=== PATIENT | male | born 1940 | race Caucasian/White ===

== ENCOUNTER 2017-12-20 10:18 | Emergency (ER) ==
[2017-12-20] MEDS: EPINEPHRINE 1:10,000 SYRINGE IV PRN ×7 (10:20→11:42)
[2017-12-20] MEDS: SODIUM BICARBONATE 7.5% IVP PRN ×2 (10:24→10:40)
[2017-12-20 10:49] VITALS: TEMP 98.4; BMI 28.8
[2017-12-20] MEDS: ATROPINE SULFATE PFS IVP PRN ×2 (10:57→11:20)
--- NOTE | 2017-12-20 11:06 | ED.PDOC ---
General ED Provider: Dr. RON CUBA Chief Complaint: Cardiac Arrest Stated Complaint: Patient was a guest at the [employer] [facility] and was apparently departing this AM and witnessed collapsing on the lawn outside the motel. Bystander CPR intiated as 911 activated. Upon arrival here by EMS patient coding and CPR had been in progress. Patient was not intubated. Oral airway in place. CPR was continued. Time Seen by Physician: 10:20 Mode of Arrival: Ambulance Information Source: Patient, EMT Exam Limitations: No limitations Nursing and Triage Documentation Reviewed and Agree: Yes Does patient meet sepsis criteria?: No System Inflammatory Response Syndrome: Not Applicable Sepsis Protocol: For patient's 13 years and over: Temp is 96.8 and below OR 101 and greater Pulse >90 BPM Resp >20/minute Acutely Altered Mental Status Are patient's symptoms suggestive of a new infection, such as: -Pneumonia -Skin, Soft Tissue -Endocarditis -UTI -Bone, Joint Infection -Implantable Device -Acute Abdominal Infection -Wound Infection -Meningitis -Blood Stream Catheter Infection -Unknown Cardiac Resuscitation - Cardiac Resuscitation/Physical Exam Onset/Duration: Minutes (20) Witnessed Arrest: Yes Down-time Before BLS Initiated: 5 minutes Down-time Before ALS Initiated: 15 min Airway Prehospital Findings: Reports: Patent Breathing Prehospital Findings: Reports: Apnea Circulation/Rhythm Prehospital Findings: Reports: Pulses absent Disability/Neurological Prehospital Findings: Reports: Unresponsive Airway Prehospital Intervention: Reports: Chin lift, Jaw thrust, Oral airway Breathing Prehospital Intervention: Reports: Oxygen Circulation/Rhythm Prehospital Intervention: Reports: Chest compressions, Epinephrine Breathing Prehospital Response: Present: Equal breath sounds Circulation/Rhythm Prehospital Response: Present: Pulses absent, Asystole, PEA Breathing ED Findings: Present: Apnea Circulation/Rhythm ED Findings: Present: Pulses absent Disability/Neurological ED Findings: Present: Unresponsive Airway ED Intervention: Chin lift, Jaw thrust (Intubated) Breathing ED Intervention: Oxygen, Bag-valve mask, Intubated by ED physician ( 1020 hs Patient intubated with 7.5 tube straight blade) Circulation/Rhythm ED Intervention: Chest compressions Breathing ED Response: ETT in airway, Equal breath sounds, Confirmed by auscultation, Confirmed by CO2 detector Circulation/Rhythm ED Response: Present: Pulses present (PEA to NSR; ), Pulses absent (ROSC lost and recoded at 10:49; ACLS Protocol; Regained HR with ROSC) Right Pupil: Fixed, Dilated Left Pupil: Fixed, Dilated Review Of Systems: Unable due to extremis EMS/Code Sheet Reviewed: Yes Patient is a DNR: No (Unknown) Patient Has a Living Will: No Resuscitation Successful: No Preliminary Cause of : Fatal arrhythmia. Coronary ishemia Differential Diagnoses: Acute SC, Card. Rhythm Disturbance Quality Indicator For Non-Traumatic Chest Pain/Syncope: EKG Performed Additional Information: After coding patient, regained electrical activity for short period then returned to asystole. NO VS. Coded again after using ACLS protocol. Had ROSC at approx 1949 hrs, Continued to require continous ALS with mechanical ventilation. Pupils remained fixed and dilated and demonstrated no reponsed to tactile or noxious stimuli. Despite use of ACLS meds, pts cardicac rhythm and deterioated despite therapy and had cardiac arrest. Patient pronounced at 1227 hrs Past Medical History - Past Medical History Endocrine: Reports: Unknown Cardiovascular: Reports: CAD, Hypertension, A-Fib Respiratory: Reports: Unknown Hematological: Reports: Unknown Gastrointestinal: Reports: Unknown Genitourinary: Reports: Unknown Neuro/Psych: Reports: Unknown Musculoskeletal: Reports: Unknown Cancer: Reports: Unknown - Surgical History General Surgical History: Reports: Unknown - Family History Family History: Reports: Unknown - Social History Smoking Status: Unknown if ever smoked Hx Substance Use: (unknown) Interpretation - Radiology Interpretation Radiology Results: Positive (cardiomegaly, pulmonary vascular congestion, ? basilar infiltrate) Exam Interpreted: Portable CXR Xray Comments: cardiomegaly - EKG Interpretation Time of EKG #1: 10:48 Rhythm: Sinus Ectopy: PVCs ST Segment: Other (Depressed) Interpretation: Global Ishemia. RBBB, Possible SC Physician Notification - Case Discussed Physician Notified: Supervisor [employer] At [facility], [place], [facility] Time of Notification: 11:15 (Discussed case.Post Code EKG- STEMI not obvious; Not candidate for Emergent Cath. ) Critical Care Note - Critical Care Note Total Time (mins): 120 Course - Course Hematology/Chemistry: 12/20/17 10:35 12/20/17 10:35 Orders, Labs, Meds: Lab Review 12/20/17 12/20/17 12/20/17 10:35 10:35 10:35 WBC 16.31 H RBC 3.77 L Hgb 11.1 L Hct 37.4 L MCV 99.2 H MCH 29.4 MCHC 29.7 L RDW Coeff of Mahendra 13.3 Plt Count 168 Immature Gran % (Auto) 5.3 H Neut % (Auto) 74.2 Lymph % (Auto) 10.9 [place] % (Auto) 9.2 Eos % (Auto) 0.1 Baso % (Auto) 0.3 Immature Gran # (Auto) 0.9 Neut # (Auto) 12.1 H Lymph # (Auto) 1.8 [place] # (Auto) 1.5 Eos # (Auto) 0.0 Baso # (Auto) 0.1 Puncture Site O2 Saturation ABG pH ABG pCO2 ABG pO2 ABG HCO3 ABG Total CO2 ABG Base Excess Jeancarlos Test O2 Delivery Device Oxygen Liter Flow FiO2 % Sodium 140.0 Potassium 4.07 Chloride 99.9 Carbon Dioxide 17.6 L Anion Gap 26.57 BUN 23.7 H Creatinine 1.39 H Estimated GFR (MDRD) 49.00 BUN/Creatinine Ratio 17.05 Glucose 300.9 H Calcium 8.40 Total Bilirubin 3.39 H AST 221.9 H ALT 162.7 H Alkaline Phosphatase 58.9 Total Creatine Kinase 356.8 H CK-MB (CK-2) 20.100 H* CK-MB (CK-2) % 5.6300 Troponin I 1.990 H* Total Protein 6.06 L Albumin 3.47 L Globulin 2.59 Albumin/Globulin Ratio 1.33 Plasma/Serum Alcohol 12/20/17 12/20/17 12/20/17 10:35 12:31 12:32 WBC RBC Hgb Hct MCV MCH MCHC RDW Coeff of Mahendra Plt Count Immature Gran % (Auto) Neut % (Auto) Lymph % (Auto) [place] % (Auto) Eos % (Auto) Baso % (Auto) Immature Gran # (Auto) Neut # (Auto) Lymph # (Auto) [place] # (Auto) Eos # (Auto) Baso # (Auto) Puncture Site Rrad Rrad O2 Saturation 30.0 L 96.0 ABG pH 6.793 L* 7.044 L* ABG pCO2 119.3 H 54.6 H ABG pO2 37.0 L* 117.0 H ABG HCO3 18.3 L 14.9 L ABG Total CO2 22 17 L ABG Base Excess -16 L -16 L Jeancarlos Test + O2 Delivery Device Ambu Vent Oxygen Liter Flow 15.00 FiO2 % 100.0 60.0 Sodium Potassium Chloride Carbon Dioxide Anion Gap BUN Creatinine Estimated GFR (MDRD) BUN/Creatinine Ratio Glucose Calcium Total Bilirubin AST ALT Alkaline Phosphatase Total Creatine Kinase CK-MB (CK-2) CK-MB (CK-2) % Troponin I Total Protein Albumin Globulin Albumin/Globulin Ratio Plasma/Serum Alcohol < 10.0 Orders Category Date Time Status ABG DRAW REQUEST Stat CARDIO 12/20/17 10:45 Completed ABG DRAW REQUEST Stat CARDIO 12/20/17 11:15 Completed CPR - ED ONLY Stat CARDIO 12/20/17 11:10 Completed EKG-(ED ONLY) Stat CARDIO 12/20/17 10:45 Completed EKG-(ED ONLY) Stat CARDIO 12/20/17 10:45 Completed VENTILATOR Routine CARDIO 12/20/17 11:30 Completed ED PAROLE HEARING OFFICER APPLIED .ONCE EMERGENCY 12/20/17 11:10 Active ED IV/MEDIPORT/POWERPORT .ONCE EMERGENCY 12/20/17 11:10 Active ABG Stat LAB 12/20/17 12:31 Completed ABG Stat LAB 12/20/17 12:32 Completed BLOOD ALCOHOL Stat LAB 12/20/17 10:35 Completed CBC W/ AUTO DIFF Stat LAB 12/20/17 10:35 Completed COMPREHENSIVE METABOLIC PANEL Stat LAB 12/20/17 10:35 Completed CREATINE KINASE Stat LAB 12/20/17 10:35 Completed TROPONIN I Stat LAB 12/20/17 10:35 Completed 0.9 % Sodium Chloride [Saline Flush] MEDS 12/20/17 11:10 Discontinued 1 syr IVF PRN PRN 0.9 % Sodium Chloride [Sodium Chloride] 246 ml MEDS 12/20/17 12:00 Discontinued Norepinephrine Bitartrate Inj [Levophed] 4 mg IV 8 mcg/min Atropine Sulfate Inj [Atropine Sulfate Pfs] MEDS 12/20/17 11:10 Discontinued 1 mg IVP PRN PRN Dextrose 5 %-Water [Dextrose 5%-Water IV Soln] 246 ml MEDS 12/20/17 12:00 Discontinued Norepinephrine Bitartrate Inj [Levophed] 4 mg IV 8 mcg/min Epinephrine [Epinephrine 1:10,000 Syringe] MEDS 12/20/17 11:10 Discontinued 1 mg IV PRN PRN Sodium Bicarb 7.5% [Sodium Bicarbonate 7.5%] MEDS 12/20/17 11:10 Discontinued 44.6 meq IVP PRN PRN CHEST, 1V AP ONLY Stat RADS 12/20/17 10:31 Completed Medications Discontinued Medications Generic Name Dose Route Start Last Admin Trade Name Freq PRN Reason Stop Dose Admin Atropine Sulfate 1 mg 12/20/17 11:10 12/20/17 11:20 Atropine Sulfate Pfs IVP 1 mg PRN PRN Administration DIRECTED BY PHYSICIAN-CODE Epinephrine HCl 1 mg 12/20/17 11:10 12/20/17 11:42 Epinephrine 1:10,000 Syringe IV 1 mg PRN PRN Administration DIRECTED BY PHYSICIAN-CODE Norepinephrine Bitartrate 4 mg 250 mls @ 30 mls/hr 12/20/17 12:00 / Sodium Chloride IV .Q8H20M DAVID Protocol 8 MCG/MIN Norepinephrine Bitartrate 4 mg 250 mls @ 30 mls/hr 12/20/17 12:00 12/20/17 11 :38 / Dextrose IV 8 mcg/min .Q8H20M DAVID 30 mls/hr Administration Protocol 8 MCG/MIN Sodium Bicarbonate 44.6 meq 12/20/17 11:10 12/20/17 10:40 Sodium Bicarbonate 7.5% IVP 44.6 meq PRN PRN Administration DIRECTED BY PHYSICIAN-CODE Sodium Chloride 1 syr 12/20/17 11:10 Saline Flush IVF PRN PRN To flush IV Vital Signs: Temp Pulse Resp BP Pulse Ox 12/20/17 12:00 16 12/20/17 11:38 80 20 65/44 L 12/20/17 11:00 16 12/20/17 10:56 80 20 110/57 L 12/20/17 10:20 98.4 F 0 L 0 L 0/0 L 49 L Departure - Departure Time of Disposition: 12:37 Disposition: Discharge Problem: Cardiac arrhythmia, Cardiac arrest Condition: Pt referred to PMD for follow-up: No IPMP verified?: No ED Physician Progress Note ED Physician Progress Note: [] Additional Comments Additional Comments: After coding patient, he regained electrical activity for short period. All definitive meds used. Regained spontaneous heart rhythm. EKG obtained. Contacted Cardiology at [facility] regading Cardicac evaluation and possible heart cath. Discussed case.Post Code EKG- revealed no findings suggestive of a STEMI; Advised Not candidate for Emergent Cath. The patient shortly deterioated becoming progressively hypotensive and then cardiac arrest - returned to asystole. NO VS. Coded again after using ACLS protocol .Had ROSC at approx 1949 hrs, Initiatedf NE drip. Continued to require continous ALS with mechanical ventilation. Pupils remained fixed and dilated and demonstrated no reponsed to tactile or noxious stimuli. Discussed with hospitalist at [facility] regarding possible transfer. Experssed need for patient to have Central line. Patient had peripheral access. Determined not stable for transfer or placement of Central Line due to his status and potential risk involved in light of having acceptable peripheral IV access. Considered admission here for continued stabilization . Opted to keep patient in ER for close monitoring. Despite use of ACLS meds, pts VS and cardicac rhythm deterioated and went into cardiac arrest. Determined additional treatment not warranted due to current conditon and Patient pronounced at 1227 hrs. Next of KIN in [place] contacted with assistance of [facility] . Licensed Journeyman Electrician contacted by Staff. Additional Information: Contacted PD in [facility] for assistance with notification of next of kin. Return call from the carpenter inspector revealed notification made to a Henry Heisinger, nephew. Spoke with him and discussed circumstances surrounging the . Advised patient with known history of medical problems including heart disease, meds listed noted and confirmed. Provided information to the [facility]
[2017-12-20] MEDS ORDERED: LEVOPHED 4 MG in DEXTROSE 5%-WATER IV SOLN 246 ML IV SCH (12:00)
[2017-12-20] MEDS ORDERED: LEVOPHED 4 MG in SODIUM CHLORIDE 246 ML IV SCH (12:00)
[2017-12-20 14:40] VITALS: BP 65/44
--- NOTE | 2017-12-21 08:15 | DI ---
EXAM: Chest one view, frontal view only. HISTORY: Cardiac arrest. COMPARISON: None available. FINDINGS: Endotracheal tube tip is just below the level of the medial clavicles, approximately 4.3 c m above the john. Enteric tube tip is just below the diaphragm projecting over the gastric air joby ble. Side hole is likely above the diaphragm. External defibrillator pads noted. Various external monitoring wires are present. Cardiac silhouette is enlarged. Aortic atherosclerotic calcifications suggested. Mild prominence of the central pulmonary vasculature noted. There is haziness in the me dial right lung base although evaluation is limited by superimposition of structures. The lungs are otherwise clear. No pleural effusion or pneumothorax identified. Suspect old left lateral rib fractu res. IMPRESSION: 1. Endotracheal and enteric tubes positioned as described. 2. Cardiomegaly and mild vascular congestion. 3. Possible mild medial right basilar consolidation.
== END 2017-12-20 14:15 | disposition expired ==
LOC: ED 10:18
DX: I46.9 Cardiac arrest, cause unspecified (principal); I25.10 Atherosclerotic heart disease of native coronary artery without angina pectoris; I10 Essential (primary) hypertension
CPT/HCPCS: 36415; 80053; 80307; 82550; 82553; 82803; 84484; 85025; 93005; 93010; 96365; 96375; 96376; 99285; 99291; 99292